=== PATIENT | male | born 1970 | race Caucasian/White ===

== ENCOUNTER 2025-03-07 14:02 | Emergency (ER) | payer OTHER, SELFPAY ==
[2025-03-07 14:04] VITALS: BP 154/99
--- NOTE | 2025-03-07 15:08 | ED.GENMED ---
History of Present Illness
General
Chief Complaint: Urinary Symptoms
Time Seen by Provider: 03/07/25 15:08
History of Present Illness
History of Present Illness:
TIME OF INITIAL EVALUATION
- 3:10 PM
REVIEW OF OLD RECORDS
- The patient has history of migraines; the patient was admitted in 2008 related to concerns for hand infection.
Note:
CHIEF COMPLAINT(S)
Burning sensation during urination, fever, and difficulty with urine output.
HISTORY OF PRESENT ILLNESS
The patient is a 54-year-old male who presented with burning sensation during urination, which began on . He reported experiencing low-grade fevers, peaking at 101�F. He feels the fever recurs intermittently, with temperatures remaining
around 99�F. The patient describes significant discomfort, especially during urination, and a sensation of incomplete bladder emptying, stating, 'I always feel like I have to pee now, but I dont.' He denies experiencing sharp pain but describes the
sensation as uncomfortable. He has also noticed blood in his urine.
PLAN
1. Conduct blood tests to evaluate for underlying infection or other abnormalities.
2. Perform a urine test to assess for urinary tract infection or the presence of blood.
3. Consider urinary retention assessment due to incomplete bladder emptying sensation.
4. Administer non-narcotic anti-inflammatory medication for discomfort, specifically offering a medication similar to ibuprofen.
DIFFERENTIAL DIAGNOSIS
The Differential Diagnosis includes, in no particular order and is not limited to:
1. Urinary tract infection
2. Prostatitis
3. Kidney stones
4. Benign prostatic hyperplasia
5. Bladder infection
6. Acute pyelonephritis
7. Urethritis
8. Cystitis
9. Hematuria of unknown origin
10. Urinary tract obstruction
RADIOLOGY
- Considered CT however the patient has no back/abdominal pain to suggest kidney stone
EKG
-
LABS
- White count is normal at 10.1, hemoglobin normal, glucose is elevated at 168, lactic is 1.2, total bili is 2.7 however the remainder of the LFTs are relatively unremarkable, overwhelming sounds of UTI on urinalysis with greater than 100 white
cells, positive nitrite and 3+ leukocyte esterase.
UPDATE
- The patient did have a bladder scan that showed only 25 mL of urine as postvoid residual
SUMMARY OF ENCOUNTER
The patient, a 54-year-old male, presented to the emergency department with complaints of burning sensation during urination, low-grade intermittent fever, and difficulty with urine output. Urinalysis revealed a high number of white blood cells
indicative of a urinary tract infection (UTI), though the serum white cell count was at the higher end of normal. Lactic acid levels were checked to rule out sepsis and were normal at 1.2, which is reassuring. Kidney function tests were normal.
Liver function tests showed a slightly elevated bilirubin, with normal AST and ALT levels. The patient was managed with an intravenous dose of ciprofloxacin to ensure rapid bloodstream penetration due to the suspicion of a significant UTI and was
prescribed a seven-day course of ciprofloxacin for continued treatment at home.
DISPOSITION
Discharge.
ASSESSMENT
The most likely diagnosis is a urinary tract infection. The presence of white blood cells in the urine supports this, and the lack of elevated white blood cells in the bloodstream and normal lactic acid level reduces the suspicion of a more
widespread infection (sepsis).
EMERGENCY TREATMENTS ADMINISTERED
Administered an intravenous dose of ciprofloxacin.
PLAN
Prescribe ciprofloxacin for seven days to treat the UTI. Advise the patient to return if symptoms worsen, such as experiencing high fever, chills, or feeling faint.
INDEPENDENT REVIEW OF LABS AND INTERPRETATION OF TESTS
My independent review of urinalysis indicates a high number of white blood cells, consistent with a urinary tract infection.
My independent review of CBC is a normal white blood cell count.
My independent review of lactic acid level is normal at 1.2.
My independent review of kidney function tests is normal, and the liver function tests show a slightly elevated bilirubin but normal AST and ALT levels.
PATIENT EDUCATION AND COUNSELING
The patient was informed about the diagnosis of a urinary tract infection and educated on the signs of worsening infection, including high fever and chills. Advised to seek medical attention if symptoms escalate.
FOLLOW-UP INSTRUCTIONS
The patient was advised to follow up with their primary care doctor for continued monitoring and to return to the emergency department if symptoms worsen.
MEDICATION RECONCILIATION
Prescribed ciprofloxacin for seven days for the treatment of UTI.
MEDICAL DECISION MAKING
-Complexity of Data Reviewed: Chronic conditions affecting care include symptoms pointing towards a urinary tract infection. Differential diagnosis includes urinary tract infection, prostatitis, kidney stones, benign prostatic hyperplasia, bladder
infection, acute pyelonephritis, urethritis, cystitis, hematuria of unknown origin, and urinary tract obstruction.
-Data:
Category 1:
- Urinalysis: High number of white blood cells.
- CBC
Normal white blood cell count.
- Lactic acid level: Normal at 1.2.
- Kidney function tests were normal.
- Liver function showed slightly elevated bilirubin but normal AST and ALT levels.
- Ultrasound: Indicated a negative sign for obstruction.
Category 3:
- Discussion of management includes explaining to the patient the risk factors and signs of worsening infection, and search for additional professional input if symptoms exacerbate.
-Risk: Consideration of admission/observation was considered given the complexity and risk of the patients presenting complaint and exam findings. However, ultimately I feel the patient is safe for outpatient management with close follow-up.
Reasoning: Work-up is reassuring, does not reveal any acute life/organ-threatening processes, the patients symptoms well-controlled upon reevaluation, reexamination is reassuring, vitals are stable, patient agreeable with discharge, and reliable for
follow-up.
DIAGNOSIS
Urinary tract infection (N39.0).
Past History
Social History
Tobacco: Non-smoker
Phy Exam
Physical Exam
Physical Exam:
See HPI
Course
Orders/Labs/Results
Orders:
Orders
03/07/25 15:14
Ketorolac [Toradol] 15 mg IV NOW STA
03/07/25 15:17
Bladder Scan- Treatment ONCE
03/07/25 15:20
Complete Blood Count/With Diff Urgent
Comprehensive Metabolic Panel Urgent
Lactic Acid Q4H
Comment: CANCEL 2nd LACTIC ACID IF 1st LACTIC ACID IS LESS THAN 2
Blood Culture Q30M
JAZZ Source: Blood/Venous
Specimen Description:
03/07/25 15:21
Urinalysis Reflex To Culture Urgent
Date Specimen was Collected: 03/07/25
Time Specimen was Collected: 15:20
Urine Microscopic Reflex Cult Urgent
Urine Culture Urgent
JAZZ Source: U
Specimen Description:
Date Specimen was Collected: 03/07/25
Time Specimen was Collected: 15:20
03/07/25 15:45
Blood Culture Q30M
JAZZ Source: Blood/Venous
Specimen Description:
03/07/25 15:48
CefTRIAXone [Rocephin] 1,000 mg IV NOW STA
03/07/25 19:15
Lactic Acid Q4H
Comment: CANCEL 2nd LACTIC ACID IF 1st LACTIC ACID IS LESS THAN 2
Abnormal Lab Results
03/07/25 03/07/25
15:20 15:21
MCH 32.5 H pg
(27.0-31.0)
Plt Count 125 L 10^3/uL
(130-400)
Absolute Neuts (auto) 7.8 H 10^3/uL
(1.4-6.5)
Neutrophils % 77.5 H %
(42.2-75.2)
Lymphocytes % 15.1 L %
(20.5-51.1)
Glucose 168 H mg/dl
(70-99)
Total Bilirubin 2.7 H mg/dl
(0.2-1.3)
Alkaline Phosphatase 134 H U/L
(38-126)
Urine Ketones 1+ A
(Negative)
Ur Occult Blood Reflex 4+ A
(Negative)
Urine Nitrite (Reflex) Positive A
(Negative)
Urine Bilirubin 1+ A
(Negative)
Urine Urobilinogen 2+ A
(Neg - 1+)
Leukocyte Esterase Rfl 3+ A
(Negative)
Urine WBC (Reflex) >100 A /HPF
(0-5)
Urine Albumin (Reflex) 3+ A
(Neg - Trace)
03/07/25 15:20
03/07/25 15:20
Vital Signs
Initial and Last Documented VS:
Initial Vital Signs
Temp Pulse Resp BP Pulse Ox
37.3 C 91 16 154/99 97
03/07/25 14:04 03/07/25 14:04 03/07/25 14:04 03/07/25 14:04 03/07/25 14:04
Last Documented Vital Signs
Temp Pulse Resp BP Pulse Ox
37.3 C 91 16 154/99 97
03/07/25 14:04 03/07/25 14:04 03/07/25 14:04 03/07/25 14:04 03/07/25 15:08
*Pulse Oximetry
SaO2: 97
Oxygen Mode of Delivery: Room air
Patient hypoxic: no
*Critical Care Note
Total Time (30-74mins, 75-104mins- exclusive of procedures): Not Applicable
ED Attending Note
-
Portions of this chart may have been created with voice recognition software.� Occasional wrong word or��sound alike� substitutions may have occurred due to the inherent limitations of voice recognition software.
Discharge Plan
Departure
Patient Disposition: Home (Routine Discharge)
Date of Disposition: 03/07/25
Time of Disposition: 16:42
Patient with high blood pressure during this ER visit?: Yes
Discharge Problem:
Urinary tract infection
Instructions: Urinary Tract Infection, Adult (DC), BLOOD PRESSURE
Prescriptions:
New
ciprofloxacin HCl [Cipro] 500 mg tablet
500 mg PO Q12H Qty: 14 0RF
No Action
docosahexaenoic acid-epa 1 CAP capsule
1 gel PO DAILY
Ca myzk-ohbmmzobd-tzvn thistle [Liver-Kidney Cleanser] 1 EACH capsule
1 cap PO DAILY
multivitamin with folic acid [Tab-A-Orion] 1 TABLET tablet
1 tab PO DAILY
oxycodone-acetaminophen 5 MG/325 MG tablet
1 - 2 tab PO Q6HPRN PRN (Reason: pain) Qty: 20 0RF
Referrals:
Nolvia Berger CRNP [Family Provider]
Activity Restrictions/Additional Instructions:
Urine culture is pending. We gave you dose of Rocephin in the emerged part. I am starting you on Cipro�you can take the next dose in the morning. I am sending this to your pharmacy.
Interventions
Interventions:
*Risk Screen - Suicide Last Done: 03/07/25 14:06
*General Assessment Last Done: 03/07/25 15:05
*Neglect/Abuse Screening Last Done: 03/07/25 14:06
*ED- Fall Risk Assessment Last Done: 03/07/25 15:05
*ED COVID-19 Vaccine History Last Done: 03/07/25 15:05
ED-Male Genitourinary Assessment Last Done: 03/07/25 15:05
Discharge Date and Time
Print Language: GREENLANDIC
[2025-03-07] MEDS: TORADOL 15 MG IV (15:29)
[2025-03-07 15:41] LABS: Hematocrit 42.1 % (39.0-52.0); Hemoglobin 15.4 g/dL (13.0-18.0); Mean Corp Hgb Conc. 36.6 g/dL (33.0-37.0); Mean Corpuscular Volume 88.8 fL (80.0-94.0); Nucleated Red Blood Cells % 0 % (-); Platelet Count 125 10^3/uL (130-400); Red Cell Dist. Width 12.7 % (11.5-14.5)
[2025-03-07 15:46] LABS: Urine Character Cloudy (Clear)
[2025-03-07 15:57] LABS: Urine White Cell >100 /HPF (0-5)
[2025-03-07] MEDS: ROCEPHIN 1000 MG IV (15:57)
[2025-03-07 16:06] LABS: ALT (SGPT) 29 U/L (0-50); AST (SGOT) 32 U/L (17-59); Albumin 4.1 g/dl (3.5-5.0); Alkaline Phosphatase 134 U/L (38-126); Blood Urea Nitrogen 12 mg/dl (9-20); Calcium 9.0 mg/dl (8.4-10.2); Carbon Dioxide 24 mmol/L (22-30); Chloride 107 mmol/L (98-107); Glucose 168 mg/dl (70-99); Potassium 3.7 mmol/L (3.5-5.1); Sodium 140 mmol/L (135-145); Total Protein 7.2 g/dl (6.3-8.2); eGFR > 60.00
== END 2025-03-07 17:06 | disposition home or self-care (01) ==
LOC: EMR 14:02
PROVIDERS: EMERGENCY PHYSICIAN Emergency Medicine
DX: N39.0 Urinary tract infection, site not specified (principal)
CPT/HCPCS: 99283; 96374; 96375; 80053; 81003; 81015; 83605; 85025; 87040; 87077; 87086